=== PATIENT | male | born 2005 | race African-American/Black ===

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

== ENCOUNTER 2024-03-06 12:49 | Emergency (ER) | payer OTHER ==
[~2024-03-06] VITALS: Ht 160 cm; Wt 82.5 kg
[~2024-03-06 12:49] MED LIST: IBUP80TA PO; MEDR4PAK PO; METH-1164 PO; ONDA4TAB6 PO
[2024-03-06 13:36] LABS: BASO % 0.4 % (0.0-1.0); EOS # 0.1 10^3/uL (0.0-0.5); EOS % 1.6 % (0.0-3.0); HEMATOCRIT 39.6 % (42.0-52.0); HEMOGLOBIN 13.7 g/dl (13.5-17.5); LYMPH # 2.9 10^3/uL (1.5-5.0); LYMPH % 33.5 % (24.0-44.0); MEAN CORPUSCULAR HEMOGLOBIN 32.6 pg (27.0-33.0); MEAN CORPUSCULAR HGB CONC 34.6 g/dl (32.0-36.5); MEAN CORPUSCULAR VOLUME 94.3 fl (80.0-96.0); MONO # 0.8 10^3/uL (0.0-0.8); MONO % 9.2 % (2.0-8.0); NEUTROPHILS # 4.7 10^3/uL (1.5-8.5); NEUTROPHILS % 55.1 % (36.0-66.0); PLATELET COUNT, AUTOMATED 180 10^3/uL (150-450); WHITE BLOOD COUNT 8.6 10^3/uL (4.0-10.0)
[2024-03-06 14:07] LABS: BLOOD UREA NITROGEN 12 MG/DL (9-23); CALCIUM LEVEL 9.9 MG/DL (8.5-10.1); CARBON DIOXIDE LEVEL 32 MMOL/L (20-31); CHLORIDE LEVEL 103 MMOL/L (98-107); CREATININE FOR GFR 1.12 MG/DL (0.70-1.30); GLUCOSE, FASTING 84 MG/DL (60-100); MAGNESIUM LEVEL 1.8 MG/DL (1.8-2.4); SODIUM LEVEL 138 MMOL/L (136-145)
[2024-03-06 14:10] LABS: FREE T4 0.92 NG/DL (0.83-1.43); THYROID STIMULATING HORMONE 0.918 uIU/ML (0.48-4.17)
[2024-03-06 15:44] VITALS: TEMP 97.6; O2SAT 100
[2024-03-06 16:11] LABS: AMPHETAMINES LEVEL URINE NEGATIVE (NEGATIVE); BARBITURATES URINE NEGATIVE (NEGATIVE); BENZODIAZEPINES URINE NEGATIVE (NEGATIVE); COCAINE METABOLITE URINE NEGATIVE (NEGATIVE); METHADONE URINE NEGATIVE (NEGATIVE); OPIATES URINE NEGATIVE (NEGATIVE)
[2024-03-06 16:12] LABS: CANNABINOIDS URINE NEGATIVE (NEGATIVE); PHENCYCLIDINE URINE NEGATIVE (NEGATIVE)
[2024-03-06] MEDS ORDERED: ISOVUE-370 76% 100ML VIAL As Ordered ONE (16:56)
[2024-03-06 18:09] VITALS: BP 129/78
[2024-03-06] MEDS ORDERED: EEG XX (18:49)
[2024-03-06] MEDS ORDERED: HOLTER MONITOR XX (18:49)
== END 2024-03-06 19:00 | disposition home or self-care (01) ==
LOC: M ED 12:49
DX: R55 Syncope and collapse (principal); R56.9 Unspecified convulsions; F17.200 Nicotine dependence, unspecified, uncomplicated; Z88.1 Allergy status to other antibiotic agents; Z79.899 Other long term (current) drug therapy
CPT/HCPCS: 36415; 70450; 71275; 80048; 80307; 83735; 84439; 84443; 85025; 93005; 99284; Q9967

== ENCOUNTER → 2024-03-10 | Outpatient (CLI) | payer BC, OTHER ==
[~2024-03-10] MED LIST changes: +EEG XX; +HOLTER MONITOR XX
== END ==
LOC: M EKG 14:07
PROVIDERS: ATTEND Physician Assistant
DX: R00.2 Palpitations (principal)

== ENCOUNTER 2024-06-19 06:44 | Emergency (ER) | payer BC, OTHER ==
[~2024-06-19] VITALS: Ht 162.6 cm; Wt 85.6 kg
[~2024-06-19 06:44] MED LIST changes: +ONDA-282 PO; -ONDA4TAB6 PO
[2024-06-19 08:11] LABS: BASO % 0.4 % (0.0-1.0); EOS # 0.1 10^3/uL (0.0-0.5); EOS % 0.9 % (0.0-3.0); HEMATOCRIT 41.7 % (42.0-52.0); HEMOGLOBIN 14.1 g/dl (13.5-17.5); LYMPH # 2.5 10^3/uL (1.5-5.0); LYMPH % 29.3 % (24.0-44.0); MEAN CORPUSCULAR HEMOGLOBIN 33.2 pg (27.0-33.0); MEAN CORPUSCULAR HGB CONC 33.8 g/dl (32.0-36.5); MEAN CORPUSCULAR VOLUME 98.1 fl (80.0-96.0); MONO # 0.7 10^3/uL (0.0-0.8); MONO % 8.6 % (2.0-8.0); NEUTROPHILS # 5.1 10^3/uL (1.5-8.5); NEUTROPHILS % 60.7 % (36.0-66.0); PLATELET COUNT, AUTOMATED 171 10^3/uL (150-450); RED BLOOD COUNT 4.25 10^6/uL (4.30-6.10); WHITE BLOOD COUNT 8.5 10^3/uL (4.0-10.0)
[2024-06-19 08:38] LABS: ALBUMIN 4.3 G/DL (3.2-5.2); ALKALINE PHOSPHATASE 105 U/L (46-116); ALT/SGPT 85 U/L (7.0-40); AST/SGOT 47 U/L (<34); BILIRUBIN,DIRECT 0.1 MG/DL (<0.4); BILIRUBIN,TOTAL 0.5 MG/DL (0.3-1.2); BLOOD UREA NITROGEN 10 MG/DL (9-23); CALCIUM LEVEL 9.7 MG/DL (8.5-10.1); CARBON DIOXIDE LEVEL 31 MMOL/L (20-31); CHLORIDE LEVEL 103 MMOL/L (98-107); CK-MB VALUE MASS < 1.0 NG/ML (<3.6); GLUCOSE, FASTING 85 MG/DL (60-100); POTASSIUM SERUM 3.9 MMOL/L (3.5-5.1); SODIUM LEVEL 139 MMOL/L (136-145); TOTAL PROTEIN 7.5 G/DL (5.7-8.2)
[2024-06-19 08:40] LABS: THYROID STIMULATING HORMONE 0.738 uIU/ML (0.48-4.17)
[2024-06-19 08:48] LABS: CPK CREATINE PHOSPHOKINASE 417 U/L (46-171); MB/CK RELATIVE INDEX 0.23 (< OR =4)
[2024-06-19] MEDS ORDERED: HOLTER MONITOR XX (09:16)
[2024-06-19 09:27] VITALS: BP 106/61; TEMP 97.8; O2SAT 97
== END 2024-06-19 09:38 | disposition home or self-care (01) ==
LOC: M ED 06:44
DX: R00.2 Palpitations (principal); I49.9 Cardiac arrhythmia, unspecified; G40.909 Epilepsy, unspecified, not intractable, without status epilepticus; Z88.1 Allergy status to other antibiotic agents

== ENCOUNTER → 2024-07-11 | Outpatient (CLI) | payer OTHER, BC ==
[~2024-07-11] MED LIST changes: +BENA25CA4 PO
== END ==
LOC: M EKG 09:48
PROVIDERS: ATTEND Nurse Practitioner Family
DX: R00.2 Palpitations (principal)

== ENCOUNTER → 2024-07-14 | Outpatient (CLI) | payer OTHER, BC | LOC: M SLEEP 07:46 | PROVIDERS: ATTEND Physician Assistant | DX: R56.9 Unspecified convulsions (principal) ==

== ENCOUNTER 2024-07-15 07:10 | Emergency (ER) | payer OTHER, BC ==
[~2024-07-15] VITALS: Ht 162.6 cm; Wt 87.0 kg
[2024-07-15 07:10] VITALS: BP 126/71; TEMP 96.5; O2SAT 98
[~2024-07-15 07:10] MED LIST changes: -BENA25CA4 PO
[2024-07-15] MEDS ORDERED: BENA25CA4 PO (07:21)
== END 2024-07-15 11:26 | disposition left against medical advice (07) ==
LOC: M ED 07:10
DX: Z53.21 Procedure and treatment not carried out due to patient leaving prior to being seen by health care provider (principal)

== ENCOUNTER 2024-08-27 07:25 | Emergency (ER) | payer OTHER, BC ==
[~2024-08-27] VITALS: Ht 165.1 cm; Wt 81.8 kg
[~2024-08-27 07:25] MED LIST changes: +BENA25CA4 PO
[2024-08-27 07:32] VITALS: BP 127/73; TEMP 97.5; O2SAT 100
[2024-08-27] MEDS ORDERED: ONDANSETRON 4MG ORAL DISINTEGRATING TAB PO ONE (07:50)
== END 2024-08-27 09:27 | disposition left against medical advice (07) ==
LOC: M ED 07:25
DX: Z53.21 Procedure and treatment not carried out due to patient leaving prior to being seen by health care provider (principal)

== ENCOUNTER 2024-12-15 17:52 | Emergency (ER) | payer OTHER, BC ==
[~2024-12-15] VITALS: Ht 162.6 cm; Wt 87.7 kg
[2024-12-16 00:37] VITALS: BP 125/79; TEMP 98.3; O2SAT 98
== END 2024-12-16 00:38 | disposition home or self-care (01) ==
LOC: M ED 17:52 → EDBD 17:52 → M ED 12-16 00:38
DX: S20.229A Contusion of unspecified back wall of thorax, initial encounter (principal); V49.40XA Driver injured in collision with unspecified motor vehicles in traffic accident, initial encounter; Y92.410 Unspecified street and highway as the place of occurrence of the external cause; Y93.89 Activity, other specified; Y99.9 Unspecified external cause status; Z88.1 Allergy status to other antibiotic agents; R56.9 Unspecified convulsions